=== PATIENT | female | born 1940 ===

== ENCOUNTER 2023-12-02 12:00 | Inpatient (IN) | payer OTHER ==
[~2023-12-02] VITALS: Ht 170.2 cm; Wt 65.8 kg
[2023-12-02] MEDS ORDERED: SYNTHROID50 MCG PO (13:15)
[2023-12-02] MEDS ORDERED: COZAAR100 MG PO (13:15)
[2023-12-02] MEDS ORDERED: PRAVASTATIN SOD20 MG PO (13:15)
[2023-12-02] MEDS ORDERED: DAFLONEX-XL 11300 MG PO (13:16)
[2023-12-02] MEDS ORDERED: INTESTINEX680 M1 PO (13:16)
[2023-12-02] MEDS ORDERED: ALTACE10 MG PO (13:16)
[2023-12-02] MEDS ORDERED: MIRALAX17 GM PO (13:16)
[2023-12-02] MEDS ORDERED: FUSION PLUS CA1 EACH PO (13:17)
[2023-12-08] MEDS ORDERED: ONDANSETRON HCL 2 MG/ML VIAL IV PRN (17:45)
[2023-12-08] MEDS ORDERED: DEXTROSE 50 % IN WATER 0.5 G/ML DISP.SYRIN IV PRN (17:45)
[2023-12-08] MEDS ORDERED: MORPHINE SULFATE 4 MG/ML CARTRIDGE IV PRN (17:45)
[2023-12-08] MEDS ORDERED: OxyCODONE HCL 5 MG TABLET (ROXICODONE) PO PRN (17:45)
[2023-12-08] MEDS ORDERED: 0.9 % SODIUM CHLORIDE 1,000 ML IV SCH (17:45)
[2023-12-08] MEDS ORDERED: METRONIDAZOLE/SODIUM CHLORIDE 500 MG/100 ML PIGGYBACK IV ONE (19:15)
[2023-12-08] MEDS ORDERED: levoFLOXacin IN DEXTROSE 5 % 5 MG/ML PIGGYBAG IV ONE (19:15)
[2023-12-08] MEDS ORDERED: LIDOCAINE HCL 1% 10ML VIAL IJ ONE (19:15)
[2023-12-08] MEDS ORDERED: BUPIVACAINE HCL 30 ML VIAL IJ ONE (19:15)
[2023-12-08] MEDS ORDERED: ACETAMINOPHEN 500 MG GEL..CAP PO SCH (20:00)
[2023-12-08] MEDS ORDERED: CELECOXIB 200 MG CAPSULE PO SCH (21:00)
[2023-12-08] MEDS ORDERED: FAMOTIDINE/PF 20 MG/2 ML VIAL IV PUSH SCH (21:00)
[2023-12-08 23:19] LABS: HEMATOCRIT 29.5 % (36.0-45.00); MEAN CORPUSCULAR HEMOGLOBIN 28.5 pg (27.00-32.0); MEAN CORPUSCULAR HGB CONC 33.9 g/dl (32.0-36.0); PLATELET COUNT 212 K/uL (150-450); RED BLOOD COUNT 3.51 M/uL (4.00-6.00); RED CELL DISTRIBUTION WIDTH 12.8 % (11.5-14.5)
[2023-12-08 23:43] LABS: ALBUMIN 2.6 gm/dL (3.4-5.0); CALCIUM 8.9 mg/dL (8.5-10.1); CREATININE SERUM 0.44 mg/dL (0.55-1.02); GFR 136.23; MAGNESIUM 1.6 mg/dL (1.8-2.4); PHOSPHOROUS 2.3 mg/dL (2.5-4.9); POTASSIUM 3.06 mEq/L (3.5-5.1)
[2023-12-08] MEDS ORDERED: MORPHINE SULFATE 4 MG/ML VIAL IV ONE (23:55)
[2023-12-09] MEDS ORDERED: GABAPENTIN 300 MG CAPSULE PO SCH (01:00)
[2023-12-09 01:55] VITALS: BP 104/62; O2SAT 96
[2023-12-09 07:13] LABS: HEMATOCRIT 30.7 % (36.0-45.00); HEMOGLOBIN 10.4 g/dL (12.0-15.00); MEAN CELL VOLUME 85.8 fL (80.00-100.00); MEAN CORPUSCULAR HEMOGLOBIN 28.9 pg (27.00-32.0); MEAN CORPUSCULAR HGB CONC 33.7 g/dl (32.0-36.0); PLATELET COUNT 193 K/uL (150-450); RED BLOOD COUNT 3.58 M/uL (4.00-6.00); RED CELL DISTRIBUTION WIDTH 12.7 % (11.5-14.5)
[2023-12-09 07:50] VITALS: BP 89/52; O2SAT 98
[2023-12-09 07:52] LABS: ALBUMIN 2.6 gm/dL (3.4-5.0); CALCIUM 8.6 mg/dL (8.5-10.1); CREATININE SERUM 0.58 mg/dL (0.55-1.02); GFR 99.04; MAGNESIUM 1.6 mg/dL (1.8-2.4); PHOSPHOROUS 2.1 mg/dL (2.5-4.9); POTASSIUM 3.49 mEq/L (3.5-5.1)
[2023-12-09] MEDS ORDERED: HYOSCYAMINE SULFATE 0.125 MG TAB.SUBL SL SCH (09:00)
[2023-12-09 16:24] VITALS: BP 90/52; O2SAT 90
[2023-12-09] MEDS ORDERED: MAGNESIUM SULFATE IN WATER 50 ML IV NR (17:00)
[2023-12-09] MEDS ORDERED: POLYETHYLENE GLYCOL 3350 17 GM BLIST.PACK PO SCH (17:00)
[2023-12-09] MEDS ORDERED: LACTOBACILLUS ACIDOPHILUS 1 CAP CAP PO SCH (17:00)
[2023-12-09] MEDS ORDERED: POTASSIUM CHLORIDE IN WATER 100 ML IV NR (17:00)
[2023-12-10 00:34] VITALS: BP 122/64; O2SAT 100
[2023-12-10] MEDS ORDERED: LEVOTHYROXINE SODIUM 50 MCG TABLET PO SCH (06:00)
[2023-12-10] MEDS ORDERED: BENZONATATE 100 MG CAPSULE PO PRN (07:45)
[2023-12-10] MEDS ORDERED: FUROsemide 20 MG/2 ML VIAL IV NR (08:00)
[2023-12-10 08:48] VITALS: BP 133/56; O2SAT 99
[2023-12-10] MEDS ORDERED: PHENOL 177 ML BOTTLE MM SCH (09:00)
[2023-12-10] MEDS ORDERED: LOSARTAN POTASSIUM 100 MG TABLET PO SCH (09:00)
[2023-12-10] MEDS ORDERED: RAMIPRIL 5 MG CAPSULE PO SCH (09:00)
[2023-12-10] MEDS ORDERED: ENOXAPARIN SODIUM 40 MG/0.4 ML SYRINGE SUBCUTANEO SCH ×2 (09:00→17:00)
[2023-12-10 17:35] VITALS: BP 133/58; O2SAT 100
[2023-12-11 00:10] VITALS: BP 124/60; O2SAT 100
[2023-12-11 07:35] LABS: MEAN CELL VOLUME 84.6 fL (80.00-100.00); MEAN CORPUSCULAR HGB CONC 33.3 g/dl (32.0-36.0); PLATELET COUNT 173 K/uL (150-450); RED BLOOD COUNT 2.58 M/uL (4.00-6.00); RED CELL DISTRIBUTION WIDTH 12.7 % (11.5-14.5)
[2023-12-11 07:54] LABS: HEMATOCRIT 21.8 % (36.0-45.00); HEMOGLOBIN 7.2 g/dL (12.0-15.00); MEAN CORPUSCULAR HEMOGLOBIN 27.9 pg (27.00-32.0)
[2023-12-11 08:04] LABS: CALCIUM 8.4 mg/dL (8.5-10.1); CREATININE SERUM 0.49 mg/dL (0.55-1.02); GFR 120.32; MAGNESIUM 1.7 mg/dL (1.8-2.4); POTASSIUM 3.86 mEq/L (3.5-5.1)
[2023-12-11 08:39] LABS: PHOSPHOROUS 1.5 mg/dL (2.5-4.9)
[2023-12-11 08:43] VITALS: BP 93/50; O2SAT 99
[2023-12-11 09:30] LABS: MEAN CELL VOLUME 83.7 fL (80.00-100.00); MEAN CORPUSCULAR HGB CONC 33.3 g/dl (32.0-36.0); PLATELET COUNT 162 K/uL (150-450); RED BLOOD COUNT 2.35 M/uL (4.00-6.00); RED CELL DISTRIBUTION WIDTH 13.3 % (11.5-14.5)
[2023-12-11 09:33] LABS: HEMATOCRIT 19.7 % (36.0-45.00); MEAN CORPUSCULAR HEMOGLOBIN 27.6 pg (27.00-32.0)
[2023-12-11 09:34] LABS: HEMOGLOBIN 6.5 g/dL (12.0-15.00)
[2023-12-11] MEDS ORDERED: FUROsemide 20 MG/2 ML VIAL IV SCH (09:45)
[2023-12-11] MEDS ORDERED: POTASSIUM PHOS,M-BASIC-D-BASIC 3 MM/ML VIAL IV NR (10:00)
[2023-12-11 11:37] VITALS: BP 136/62
[2023-12-11 15:58] VITALS: BP 112/55; O2SAT 100
[2023-12-11] MEDS ORDERED: levoFLOXacin IN DEXTROSE 5 % 150 ML IV SCH (17:00)
[2023-12-12] VITALS: BP 129/63; O2SAT 98
[2023-12-12 08:25] VITALS: BP 146/64; O2SAT 100
[2023-12-12 13:48] LABS: HEMATOCRIT 25.9 % (36.0-45.00); MEAN CORPUSCULAR HEMOGLOBIN 29.1 pg (27.00-32.0); MEAN CORPUSCULAR HGB CONC 34.2 g/dl (32.0-36.0); PLATELET COUNT 148 K/uL (150-450); RED BLOOD COUNT 3.05 M/uL (4.00-6.00); RED CELL DISTRIBUTION WIDTH 13.2 % (11.5-14.5)
[2023-12-12 14:07] LABS: HEMOGLOBIN 8.9 g/dL (12.0-15.00)
[2023-12-12 17:28] VITALS: BP 123/69; O2SAT 97
[2023-12-13] VITALS: BP 147/65; O2SAT 100
[2023-12-13 08:23] VITALS: BP 134/66; O2SAT 100
[2023-12-13 16:00] VITALS: BP 160/72; O2SAT 97
[2023-12-13 16:04] LABS: HEMATOCRIT 34.5 % (36.0-45.00); HEMOGLOBIN 11.9 g/dL (12.0-15.00); MEAN CELL VOLUME 83.3 fL (80.00-100.00); MEAN CORPUSCULAR HEMOGLOBIN 28.6 pg (27.00-32.0); MEAN CORPUSCULAR HGB CONC 34.4 g/dl (32.0-36.0); PLATELET COUNT 191 K/uL (150-450); RED BLOOD COUNT 4.14 M/uL (4.00-6.00); RED CELL DISTRIBUTION WIDTH 13.8 % (11.5-14.5)
[2023-12-14 00:51] VITALS: BP 165/74; O2SAT 98
[2023-12-14 10:38] VITALS: BP 134/63; O2SAT 98
[2023-12-14 17:52] VITALS: BP 152/62; O2SAT 99
[2023-12-15 00:52] VITALS: BP 140/64; O2SAT 100
[2023-12-15 06:29] LABS: HEMATOCRIT 31.1 % (36.0-45.00); HEMOGLOBIN 10.8 g/dL (12.0-15.00); MEAN CELL VOLUME 84.1 fL (80.00-100.00); MEAN CORPUSCULAR HEMOGLOBIN 29.2 pg (27.00-32.0); MEAN CORPUSCULAR HGB CONC 34.8 g/dl (32.0-36.0); PLATELET COUNT 195 K/uL (150-450); RED CELL DISTRIBUTION WIDTH 13.5 % (11.5-14.5)
[2023-12-15 07:35] LABS: ALBUMIN 2.1 gm/dL (3.4-5.0); BILIRUBIN TOTAL 0.77 mg/dL (0.3-1.2); CALCIUM 9.1 mg/dL (8.5-10.1); CREATININE SERUM 0.4 mg/dL (0.55-1.02); GFR 152.07; GLOBULINA 2.4 G/DL (2.4-3.5); POTASSIUM 3.42 mEq/L (3.5-5.1); TOTAL PROTEIN 4.5 gm/dL (6.4-8.2)
[2023-12-15 08:00] VITALS: BP 152/69; O2SAT 95
[2023-12-15] MEDS ORDERED: HYOSCYAMINE0.125 M1 SL (10:56)
[2023-12-15] MEDS ORDERED: PEPCID AC20 MG PO (10:57)
[2023-12-15] MEDS ORDERED: TRAM1TAB98 PO (10:57)
[2023-12-15] MEDS ORDERED: INTEGRA F CAPS1 EACH PO (10:57)
== END 2023-12-15 14:16 | disposition home or self-care (01) | DRG 330 ==
LOC: SURH 12-08 07:00 → O/R 12-08 07:15 → SURG 12-08 07:15 → SURH 12-08 12:00 → SURG 12-08 22:36
PROVIDERS: Specialist; ADMIT Surgery; ATTEND Surgery
PROC: 07BB0ZZ Excision of Mesenteric Lymphatic, Open Approach (ICD-10-PCS; 2023-12-08)
PROC: 0DNW4ZZ Release Peritoneum, Percutaneous Endoscopic Approach (ICD-10-PCS; 2023-12-08)
PROC: 0DJD4ZZ Inspection of Lower Intestinal Tract, Percutaneous Endoscopic Approach (ICD-10-PCS; 2023-12-08)
PROC: 0DT84ZZ Resection of Small Intestine, Percutaneous Endoscopic Approach (ICD-10-PCS; 2023-12-08)
PROC: 0DTF0ZZ Resection of Right Large Intestine, Open Approach (ICD-10-PCS; principal; 2023-12-08 07:00)
PROC: 30233N1 Transfusion of Nonautologous Red Blood Cells into Peripheral Vein, Percutaneous Approach (ICD-10-PCS; 2023-12-11)
DX: C18.0 Malignant neoplasm of cecum (principal); K56.600 Partial intestinal obstruction, unspecified as to cause; Z53.31 Laparoscopic surgical procedure converted to open procedure; D64.9 Anemia, unspecified; R59.0 Localized enlarged lymph nodes